=== PATIENT | female | born 1955 | race Two or more races ===

== ENCOUNTER 2019-07-11 11:59 | Emergency (ER) | payer MEDICAID, OTHER ==
--- NOTE | 2019-07-11 12:27 | NUR ---
Code blue called @ 1152 label press operator called @1154 Cardiology called @1155 Dr. Stuart arrived @1203
[2019-07-11] MEDS ORDERED: EPINEPHRINE 1 MG/ML, 1ML ONE (12:52)
[2019-07-11] MEDS ORDERED: AMIODARONE 360MG/200ML PREMIX ONE (12:52)
[2019-07-11] MEDS ORDERED: EPINEPHRINE SYRINGE 0.1 MG/ML, 10ML ONE (12:52)
[2019-07-11] MEDS ORDERED: AMIODARONE 50 MG/ML, 3ML ONE (12:52)
[2019-07-11] MEDS ORDERED: CALCIUM CHLORIDE 10%, 10ML SYR ONE (12:52)
--- NOTE | 2019-07-11 13:00 | NUR ---
PT CAME IN CODING, PLEASE SEE CODE SHEET.
--- NOTE | 2019-07-11 15:37 | NUR ---
late entry. district medical examiner tech able to talk with son (aroldo) via telephone. body released to [facility] medical affairs manager. cps and sw (sigrid) with pt family member ambrocio. and will leave with cps to find placement.
--- NOTE | 2019-07-11 15:47 | NUR ---
see paper charting for physical assessment
== END 2019-07-11 15:49 | disposition expired ==
LOC: ED 12:05
DX: I46.9 Cardiac arrest, cause unspecified (principal)
CPT/HCPCS: 31500; 92950; 92960; 99291; J0171; J0282